=== PATIENT | male | born 1960 | race Hispanic/Latino ===

== ENCOUNTER → 2017-05-22 | Day surgery (SDC) | payer OTHER | LOC: RAD 12:52 | PROVIDERS: ATTEND Family Medicine | DX: R06.09 Other forms of dyspnea (principal) | CPT/HCPCS: 93017 ==

== ENCOUNTER 2017-07-22 07:57 | Outpatient (CLI) | payer OTHER ==
--- NOTE | 2017-07-22 10:34 | ULT ---
SONOGRAM ABDOMEN COMPLETE: History: Abnormal liver function tests. FINDINGS: Gallbladder has a normal appearance without evidence of stones. Common duct is 0.3 cm. Liver is heter ogeneous and hyperechoic. No focal mass. No free fluid. Spleen is 11.7 cm. A 1.8 cm cyst arises from the cortex of the left kidney. The right kidney and visu alized portions of the abdominal aorta, IVC, and pancreas are unremarkable. IMPRESSION: 1. Hepatosteatosis. No evidence of gallstones or biliary obstruction. 2. Left renal cyst. POS: [facility]
== END 2017-07-22 07:58 | disposition home or self-care (01) ==
LOC: SCSULT 07:57
PROVIDERS: ATTEND Family Medicine
DX: N28.1 Cyst of kidney, acquired (principal); K76.0 Fatty (change of) liver, not elsewhere classified
CPT/HCPCS: 76700

== ENCOUNTER 2017-11-03 12:01 | Emergency (ER) | payer OTHER | END 2017-11-03 12:37 | disposition home or self-care (01) | LOC: SCSER 12:01 | DX: T80.818A Extravasation of other vesicant agent, initial encounter (principal); E78.5 Hyperlipidemia, unspecified; I10 Essential (primary) hypertension | CPT/HCPCS: 99283 ==

== ENCOUNTER 2017-11-11 09:40 | Outpatient (CLI) | payer OTHER ==
[~2017-11-11 09:40] MED LIST: Iopamidol 370 76% 100 ML VIAL ONE
--- NOTE | 2017-11-11 11:38 | CT ---
CT ABDOMEN AND PELVIS WITH AND WITHOUT CONTRAST: HISTORY: Hematuria. Elevated PSA. COMPARISON: None. TECHNIQUE: Multiple contiguous axial images were obtained in a CT of the abdomen and pelvis with and without IV contrast. Post contrast images were obtained in the nephrographic aneurysm expiratory phases. Coron al reformats were performed. FINDINGS: No calcifications are seen in either kidney. There is a small hypodensity in the right kidney, measu ring 1.2 cm in size, which likely represents a cyst. No solid renal lesions are identified. Both ur eters are unremarkable without filling defects. The urinary bladder is unremarkable. The liver, gallbladder, adrenal glands, and pancreas are unremarkable. There are calcifications in t he spleen from prior granulomatous disease. There are scattered diverticula in the colon. The patient has a 2.6 cm left inguinal hernia, contain ing colon. The small bowel and appendix are unremarkable. No free air, free fluid, or stranding janneth nges are seen in the abdomen or pelvis. No abdominal or pelvic lymphadenopathy is seen. Degenerativ e changes are seen in the spine. Calcified granuloma are seen in the left hilar region, in the lungs . IMPRESSION: 1. No urinary collecting system abnormality. 2. Left renal cyst. 3. Left inguinal hernia containing colon. 4. Diverticulosis. POS: [facility]
== END 2017-11-11 09:41 | disposition home or self-care (01) ==
LOC: SCSCT 09:40
PROVIDERS: ATTEND Urology
DX: R31.29 Other microscopic hematuria (principal); R97.20 Elevated prostate specific antigen [PSA]; N28.1 Cyst of kidney, acquired; K40.90 Unilateral inguinal hernia, without obstruction or gangrene, not specified as recurrent; K57.30 Diverticulosis of large intestine without perforation or abscess without bleeding
CPT/HCPCS: 74178

== ENCOUNTER 2017-12-01 09:35 | Outpatient (CLI) | payer OTHER ==
[2017-12-01] MEDS ORDERED: Gadobenate Dimeglumine 529 MG/1 ML (20ML VIAL) ONE (12:30)
--- NOTE | 2017-12-01 16:15 | MRI ---
MRI OF THE PELVIS WITH AND WITHOUT CONTRAST: INDICATION: History of prostate cancer status post prostate biopsy 1.5 months ago. CONTRAST: The patient received 17 cc of MultiHance for the exam. TECHNIQUE: Multiplanar, multisequence MR images were obtained of the pelvis with and without IV contrast utilizi prostate cancer specific protocol. The images were interpreted on a separate 3D SPENCER-CAD work sta tion for a whole multiparametric evaluation. FINDINGS: The prostate measures 3.9 x 3.2 x 3.6 cm giving an estimated total prostatic volume of 26.0 CC. Ther e are some striated low T2 signal intensity foci within the peripheral zone of the prostate gland larisa picious for changes of prostatitis. There is marked heterogenous signal seen within the central zone . No suspicious area of restricted diffusion is seen within the peripheral zone. No definite abnorm al lesion is seen on the T2 weighted images within the central zone. No definite abnormal dynamic co ntrast enhancement was evident. No lymphadenopathy is noted. No definite bone marrow signal abnorma lity is evident. There is a large left inguinal hernia containing fat and portions of the sigmoid colon. There is sca ttered diverticula involving the colon. IMPRESSION: PIRADS category 2 - low (clinically significant cancer is unlikely to be present). Large left inguinal hernia containing fat and protions of the sigmoid colon. Colonic diverticulosis. POS: [facility]
== END 2017-12-01 09:36 | disposition home or self-care (01) ==
LOC: TBSIIMAG 09:35
PROVIDERS: ATTEND Urology
DX: C61 Malignant neoplasm of prostate (principal); K40.90 Unilateral inguinal hernia, without obstruction or gangrene, not specified as recurrent; K57.30 Diverticulosis of large intestine without perforation or abscess without bleeding
CPT/HCPCS: 72197; A9579

== ENCOUNTER 2017-12-11 08:34 | Emergency (ER) | payer OTHER ==
[2017-12-11 09:13] LABS: #Basophils 0.1 thou/uL (0.0-0.2); #Eosinphils 0.2 thou/uL (0.0-0.7); #Lymphocytes 2.2 thou/uL (1.20-3.40); #Monocytes 0.5 thou/uL (0.11-0.59); #Neutrophils 5.2 thou/uL (1.40-6.50); %Basophils 0.9 % (0.0-1.0); %Eosinophils 2.7 % (0.0-10.0); %Lymphocytes 26.8 % (21.0-51.0); %Monocytes 5.7 % (0.0-10.0); %Neutrophils 63.9 % (42.0-75.0); Mean Corpuscular HGB CONC 32.5 g/dL (32.0-36.0); Mean Corpuscular Hemoglobin 29.3 pg (27.0-31.0); Mean Corpuscular Volume 90.3 fL (78.0-98.0); Mean Platelet Volume 9.6 fL (7.4-10.4); Platelet Count 190 thou/uL (130-400); Red Blood Cell (RBC) Count 5.79 mill/uL (4.70-6.10); White Blood Cell (WBC) Count 8.2 thou/uL (4.8-10.8)
[2017-12-11 09:32] LABS: Troponin I Less than 0.010 ng/mL (< 0.028)
[2017-12-11 09:35] LABS: ALT (SGPT) 106 U/L (8-55); AST (SGOT) 80 U/L (5-34); Alkaline Phosphatase 152 U/L (40-150); Anion Gap 12 mmol/L (10-20); BUN (Urea Nitrogen) 16 mg/dL (8.4-25.7); Bilirubin, Total 0.5 mg/dL (0.2-1.2); Calc. Creatinine Clearance 0 mL/min (70-130); Calcium 10.3 mg/dL (7.8-10.44); Carbon Dioxide 28 mmol/L (22-29); Chloride 105 mmol/L (98-107); Estimated GFR-MDRD 64; Globulin 3.7 g/dL (2.4-3.5); Glucose 102 mg/dL (70-105); Potassium 4.7 mmol/L (3.5-5.1); Protein, Total 8.7 g/dL (6.0-8.3); Sodium 140 mmol/L (136-145)
--- NOTE | 2017-12-11 09:38 | RAD ---
PA AND LATERAL VIEWS OF CHEST: Date: 12/11/17 HISTORY: Syncope. FINDINGS: Comparison made with exam of previous day. The heart size is normal. The lungs are well expanded without focal areas of consolidation, pneumotho races, or pleural effusions. No acute osseous abnormalities are seen. IMPRESSION: No acute process. POS: [facility]
== END 2017-12-11 11:16 | disposition home or self-care (01) ==
LOC: ERS 08:34
DX: R55 Syncope and collapse (principal); E78.5 Hyperlipidemia, unspecified; I10 Essential (primary) hypertension
CPT/HCPCS: 71046; 80053; 83880; 84484; 85025; 85379; 93005

== ENCOUNTER → 2018-01-08 | Day surgery (SDC) | payer OTHER ==
[2018-01-07 09:37] VITALS: BMI 203.4
[~2018-01-08] MED LIST changes: +Bupivacaine 0.25% HCL 30 ML VIAL ONE; +Bupivacaine/Epinephrine 0.25% 30 ML VIAL ONE; +CEFAZOLIN 2 GM/50 ML BAG ONE; +Famotidine/PF 20 mg/2ml Vial ONE; +Fentanyl 100 MCG/2 ML VIAL ONE; -Iopamidol 370 76% 100 ML VIAL ONE; +Ketorolac Tromethamine 30 MG/ML VIAL ONE; +Midazolam HCl 2 mg/2 ml Vial ONE; +Promethazine HCl 25 MG/ML VIAL ONE
[2018-01-08 06:23] LABS: #Basophils 0.1 thou/uL (0.0-0.2); #Eosinphils 0.2 thou/uL (0.0-0.7); #Lymphocytes 2.2 thou/uL (1.20-3.40); #Monocytes 0.6 thou/uL (0.11-0.59); %Basophils 1.5 % (0.0-1.0); %Lymphocytes 26.9 % (21.0-51.0); %Monocytes 6.8 % (0.0-10.0); %Neutrophils 61.8 % (42.0-75.0); Hemoglobin 16.1 g/dL (14.0-18.0); Mean Corpuscular HGB CONC 32.1 g/dL (32.0-36.0); Mean Corpuscular Hemoglobin 29.6 pg (27.0-31.0); Mean Corpuscular Volume 92.3 fL (78.0-98.0); Mean Platelet Volume 9.5 fL (7.4-10.4); Platelet Count 192 thou/uL (130-400); RBC Distribution Width 11.8 % (11.5-14.5); Red Blood Cell (RBC) Count 5.42 mill/uL (4.70-6.10)
[2018-01-08 06:33] LABS: Anion Gap 11 mmol/L (10-20); BUN (Urea Nitrogen) 10 mg/dL (8.4-25.7); Calc. Creatinine Clearance 87 mL/min (70-130); Calcium 9.6 mg/dL (7.8-10.44); Carbon Dioxide 26 mmol/L (22-29); Chloride 107 mmol/L (98-107); Estimated GFR-MDRD 71; Glucose 101 mg/dL (70-105); Potassium 4.2 mmol/L (3.5-5.1); Sodium 140 mmol/L (136-145)
--- NOTE | 2018-01-08 15:35 | EKG ---
Test Reason : PREOP Blood Pressure : / mmHG Vent. Rate : 057 BPM Atrial Rate : 057 BPM P-R Int : 180 ms QRS Dur : 096 ms QT Int : 414 ms P-R-T Axes : 053 054 037 degrees QTc Int : 402 ms Sinus bradycardia Otherwise normal ECG Confirmed by ANTHONY HUFFMAN ([id number]) on 01/08/2018 3:32:59 PM Referred By: MELISSA Confirmed By:ANTHONY HUFFMAN
--- NOTE | 2018-01-09 10:47 | OP ---
DATE OF PROCEDURE: 01/08/2018 PREOPERATIVE DIAGNOSES: Left inguinal hernia, prostate cancer. POSTOPERATIVE DIAGNOSES: Left inguinal hernia, prostate cancer with a large left cord lipoma and a l arge indirect inguinal hernia. OPERATION PERFORMED: Open anterior left inguinal hernia repair, excision of cord lipoma. SURGEON: Juan A Wahl M.D. ANESTHESIA: General with laryngeal mask airway. INDICATIONS: The patient is a 57-year-old male. He has a recent diagnosis of prostate canc er and prostate surgery is planned in the near future. The patient was recognized to have a large an d symptomatic left inguinal hernia. He is taken to the operating room at this time for repair of thi s. Per Urology request, a preperitoneal/posterior repair is avoided in order to leave the preperiton eal space intact for eventual prostate surgery. DESCRIPTION OF OPERATION: Informed consent was obtained. The patient was taken to the operating josafat m where general anesthesia obtained with the patient in supine position. Left inguinal area was trim med of hair, prepped with ChloraPrep and draped in sterile fashion. Local anesthetic was infiltrated using 0.25% Marcaine with epinephrine. Oblique left inguinal incision was created. Dissection was carried through skin and subcutaneous tissue. Fascia was opened parallel to its fibers so as to open the external ring. Careful dissection was carried out within the inguinal canal and the cord struct ures were isolated with a Nicole drain. The direct space was noted to be somewhat weakened, but wit hout evidence of hernia. There was an obvious fairly large indirect hernia within the cord. The cord was dissected. There was found to be a substantial cord lipoma. This was dissected free fr om cord structures and dissected back down to its base at the internal ring where it was excised usin g electrocautery. The hernia sac was then carefully dissected free from cord structures. It was dis sected back to its base at the internal ring. All hernia sac contents were reduced. This was clampe d at its base and excised. It was suture ligated with a 2-0 Vicryl suture and the neck of the cord w as allowed to reduce into the preperitoneal space. The muscular defect at the internal ring was diss ected. This was closed with 2 interrupted sutures of 2-0 Vicryl. The direct space, where it was wee kend, was repaired with 2 interrupted sutures of 2-0 Vicryl to plicate the transversalis fascia. A mesh patch was obtained, trimmed to appropriate size. It was placed within the floor of the inguin al canal. It was secured in place with several interrupted sutures of 2-0 Vicryl. One was placed at the pubic tubercle, one to the shelving edge of the inguinal ligament, and one to the anterior aspec t of the internal oblique fascia. The tails were then secured lateral to the cord structures with 2- 0 Vicryl suture. The internal ring was recreated using this mesh and the mesh was secured to the mus cular closure underneath. The fascia was then closed with a running suture of 3-0 Vicryl. The remainder of the wound was close d in layers with 3-0 and 4-0 Monocryl. Additional local anesthetic was infiltrated during closure. Dermabond was placed externally. There were no complications. The patient tolerated the procedure w ell and was taken to recovery in stable condition.
== END ==
LOC: SDC 05:57
PROVIDERS: ATTEND Specialist
PROC: 0YU60JZ Supplement Left Inguinal Region with Synthetic Substitute, Open Approach (ICD-10-PCS; principal; 2018-01-08)
DX: K40.90 Unilateral inguinal hernia, without obstruction or gangrene, not specified as recurrent (principal); D17.6 Benign lipomatous neoplasm of spermatic cord; C61 Malignant neoplasm of prostate; E78.5 Hyperlipidemia, unspecified; Z79.899 Other long term (current) drug therapy; Z98.890 Other specified postprocedural states; Z91.041 Radiographic dye allergy status
CPT/HCPCS: 36415; 80048; 85025; 93005; 93010; 96374; 96375; C1781; J0131; J1885; J2250; J2550; J3010; S0020; S0028

== ENCOUNTER 2018-02-12 12:53 | Outpatient (CLI) | payer OTHER ==
[~2018-02-12 12:53] MED LIST changes: -Bupivacaine 0.25% HCL 30 ML VIAL ONE; -Bupivacaine/Epinephrine 0.25% 30 ML VIAL ONE; -CEFAZOLIN 2 GM/50 ML BAG ONE; -Famotidine/PF 20 mg/2ml Vial ONE; -Fentanyl 100 MCG/2 ML VIAL ONE; +Iopamidol 370 76% 100 ML VIAL ONE; -Ketorolac Tromethamine 30 MG/ML VIAL ONE; -Midazolam HCl 2 mg/2 ml Vial ONE; -Promethazine HCl 25 MG/ML VIAL ONE
--- NOTE | 2018-02-12 15:43 | CT ---
CT ANGIOGRAM THORAX WITH IV CONTRAST AND 3D RECONSTRUCTIONS: DATE: 02/12/2018. COMPARISON: CT abdomen on 11/11/2017. FINDINGS: Thoracic aorta is normal in caliber without evidence of an aortic dissection. No filling defects are seen in the pulmonary arteries to suggest a pulmonary embolus. There is a stable pulmonary nodule in the anterior aspect of the right middle lobe which measures bridgett roximately 5 mm. The lungs are otherwise clear. Mediastinal structures have a normal appearance. L eft hilar calcifications are seen related to prior granulomatous disease. Calcified granulomata are seen in the liver and spleen. The liver does demonstrate diminished attenu ation which is likely attributable to fatty infiltration. Colonic diverticulosis is seen within the visualized colon. IMPRESSION: 1. No CT evidence of a pulmonary embolus. 2. Stable right middle lobe pulmonary nodule measuring 5 mm. 3. Fatty infiltration of the visualized liver. 4. Colonic diverticulosis. POS: [facility]
== END 2018-02-12 12:54 | disposition home or self-care (01) ==
LOC: CT 12:53
PROVIDERS: ATTEND Internal Medicine Critical Care Medicine
DX: I26.99 Other pulmonary embolism without acute cor pulmonale (principal); R91.1 Solitary pulmonary nodule; K76.0 Fatty (change of) liver, not elsewhere classified; K57.30 Diverticulosis of large intestine without perforation or abscess without bleeding
CPT/HCPCS: 71275

== ENCOUNTER 2018-03-16 06:21 | Outpatient (CLI) | payer OTHER ==
[2018-03-16 11:33] LABS: Bilirubin Negative (Negative); Blood, Urine Negative (Negative); Clarity CLEAR (Clear); Glucose, Urine (Dipstick) Negative (Negative); Leukocyte Negative (Negative); Nitrite Negative (Negative); Protein, Urine (Dipstick) Negative (Neg-Trace); Specific Gravity, Urine 1.007 (1.002-1.036); Urobilinogen 0.2 mg/dL (0.2-1.0); pH, Urine 5.5 (5.0-9.0)
[2018-03-16 11:36] LABS: Bacteria/HPF None Seen HPF (None Seen); Hyaline Casts/LPF 0-3 HYALINE CAST LPF (0-3 Hyaline); Pathc Cast-AUWi Flag 0.14 (0-2.49); RBC/HPF 0-3 HPF (0-3); Squamous Epithelial None Seen HPF (0-3); WBC/HPF None Seen HPF (0-3)
[2018-03-16 11:37] LABS: Hemoglobin 15.4 g/dL (14.0-18.0); Mean Corpuscular HGB CONC 31.9 g/dL (32.0-36.0); Mean Corpuscular Hemoglobin 28.8 pg (27.0-31.0); Mean Corpuscular Volume 90.3 fL (78.0-98.0); Mean Platelet Volume 9.9 fL (7.4-10.4); Platelet Count 167 thou/uL (130-400); RBC Distribution Width 12.2 % (11.5-14.5); Red Blood Cell (RBC) Count 5.36 mill/uL (4.70-6.10); White Blood Cell (WBC) Count 7.5 thou/uL (4.8-10.8)
[2018-03-16 11:43] LABS: INR-International Normal Ratio 1.1; PTT 34.6 SEC (22.9-36.1); Prothrombin Time 13.8 SEC (12.0-14.7)
[2018-03-16 11:57] LABS: ALT (SGPT) 94 U/L (8-55); AST (SGOT) 70 U/L (5-34); Albumin 4.4 g/dL (3.5-5.0); Alkaline Phosphatase 132 U/L (40-150); Anion Gap 12 mmol/L (10-20); BUN (Urea Nitrogen) 11 mg/dL (8.4-25.7); Bilirubin, Total 0.8 mg/dL (0.2-1.2); Calc. Creatinine Clearance 0 mL/min (70-130); Calcium 10.2 mg/dL (7.8-10.44); Carbon Dioxide 25 mmol/L (22-29); Chloride 105 mmol/L (98-107); Estimated GFR-MDRD 73; Globulin 3.5 g/dL (2.4-3.5); Glucose 89 mg/dL (70-105); Potassium 4.3 mmol/L (3.5-5.1); Protein, Total 7.9 g/dL (6.0-8.3); Sodium 138 mmol/L (136-145)
--- NOTE | 2018-03-16 17:17 | EKG ---
Test Reason : Blood Pressure : / mmHG Vent. Rate : 064 BPM Atrial Rate : 064 BPM P-R Int : 174 ms QRS Dur : 092 ms QT Int : 424 ms P-R-T Axes : 045 103 017 degrees QTc Int : 437 ms Sinus rhythm with Premature atrial complexes Rightward axis Possible Inferior infarct , age undetermined Abnormal ECG When compared with ECG of 08-JAN-2018 06:39, Premature atrial complexes are now Present Borderline criteria for Inferior infarct are now Present Nonspecific T wave abnormality now evident in Lateral leads Confirmed by DR. Jose DOWNING ([id number]) on 03/16/2018 5:17:32 PM Referred By: BO Confirmed By:DR. Jose DOWNING
== END 2018-03-16 06:22 | disposition home or self-care (01) ==
LOC: LABBT 06:21
PROVIDERS: ATTEND Urology
DX: Z01.818 Encounter for other preprocedural examination (principal); C61 Malignant neoplasm of prostate
CPT/HCPCS: 80053; 81001; 85027; 85610; 85730; 87086; 93005; 93010

== ENCOUNTER 2018-03-16 09:00 | Inpatient (IN) | payer OTHER ==
[2018-03-16 10:16] VITALS: BMI 31.5
[2018-03-30] MEDS ORDERED: Bupivacaine HCl 0.25%/Epi 0.0005/PF 10 ML VIAL FS ONE (06:41)
[2018-03-30] MEDS ORDERED: cefOXitin Sodium/Dextrose,Iso 1 GM in Premix Bag 1 BAG IVPB SCH (06:45)
[2018-03-30] MEDS ORDERED: Levofloxacin 500 mg/D5W 100 ml Premix Bag ONE (06:50)
[2018-03-30] MEDS ORDERED: Fentanyl 250 MCG/5 ML VIAL ONE (06:53)
[2018-03-30] MEDS ORDERED: HYDROmorphone 2 MG/ML VIAL ONE (06:54)
[2018-03-30] MEDS ORDERED: Fentanyl 100 MCG/2 ML VIAL ONE ×2 (07:18→15:53)
[2018-03-30] MEDS ORDERED: Midazolam HCl 2 mg/2 ml Vial ONE (07:18)
[2018-03-30] MEDS ORDERED: Lidocaine 1% (PF) 30 ML VIAL ONE (07:22)
[2018-03-30] MEDS ORDERED: Dexamethasone 4 mg/ml Vial ONE (07:23)
[2018-03-30] MEDS ORDERED: KETAMINE 100 MG/ML (5ML VIAL) ONE (07:37)
[2018-03-30] MEDS ORDERED: Albumin 5% 500 ML ONE (07:37)
[2018-03-30] MEDS ORDERED: ceFOXitin 1 GM VIAL ONE ×3 (09:16→11:57)
[2018-03-30] MEDS ORDERED: Vecuronium 10 MG VIAL ONE ×2 (11:57→14:53)
[2018-03-30] MEDS ORDERED: B & O ONE (12:59)
[2018-03-30] MEDS ORDERED: Bupivacaine HCl 0.5%/Epinephrine 1:200,000/PF 30 ml Vial ONE (14:42)
[2018-03-30] MEDS ORDERED: Glycopyrrolate 0.2 MG/ML 5 ML SYRINGE ONE (14:53)
[2018-03-30] MEDS ORDERED: PHENYLEPHRINE-NS 100 MCG/ML 10 ML SYRINGE ONE (14:53)
[2018-03-30] MEDS ORDERED: Rocuronium Bromide 10 MG/ML (10ML VIAL) ONE (14:53)
[2018-03-30] MEDS ORDERED: ePHEDrine/0.9% NaCl/PF SYRINGE 50 mg/10 ml ONE (14:53)
[2018-03-30] MEDS ORDERED: Ondansetron PF 4 MG/2 ML Vial ONE (14:53)
[2018-03-30] MEDS ORDERED: Lidocaine 1% PF 5 ML VIAL ONE (14:53)
[2018-03-30] MEDS ORDERED: PROPOFOL 200 MG/20 ML VIAL ONE (14:53)
[2018-03-30] MEDS ORDERED: diphenhydrAMINE 50 MG/ML VIAL IVP PRN (15:26)
[2018-03-30] MEDS ORDERED: Morphine 4 MG/ML VIAL SLOW IVP PRN ×2 (15:26)
[2018-03-30] MEDS ORDERED: Mag-Al 1200 mg/1200 mg/30 ML UDCUP PO PRN (15:26)
[2018-03-30] MEDS ORDERED: hydrALAZINE 20 MG/ML VIAL SLOW IVP PRN ×2 (15:26)
[2018-03-30] MEDS ORDERED: Zolpidem Tartrate 5 MG TAB PO PRN (15:26)
[2018-03-30] MEDS ORDERED: HYDROcodone/Acetaminophen 7.5/325 mg Tablet PO PRN (15:26)
[2018-03-30] MEDS ORDERED: cefTRIAXone\\ROCEPHIN 1 GM in Sodium Chloride 0.9% 100 ML IVPB SCH (15:30)
[2018-03-30] MEDS ORDERED: Promethazine HCl 25 MG/ML VIAL SLOW IVP PRN (15:40)
[2018-03-30] MEDS ORDERED: Promethazine HCl 25 MG/ML VIAL IM PRN (15:40)
[2018-03-30] MEDS ORDERED: Ondansetron HCl/PF 4 MG/2 ML Vial IVP PRN (15:40)
[2018-03-30 16:52] LABS: #Lymphocytes 0.8 thou/uL (1.20-3.40); #Monocytes 0.4 thou/uL (0.11-0.59); #Neutrophils 12.1 thou/uL (1.40-6.50); %Eosinophils 0.1 % (0.0-10.0); %Lymphocytes 5.8 % (21.0-51.0); %Monocytes 3.1 % (0.0-10.0); %Neutrophils 90.9 % (42.0-75.0); Mean Corpuscular HGB CONC 32.2 g/dL (32.0-36.0); Mean Corpuscular Hemoglobin 29.8 pg (27.0-31.0); Mean Corpuscular Volume 92.6 fL (78.0-98.0); Mean Platelet Volume 9.9 fL (7.4-10.4); Platelet Count 179 thou/uL (130-400); White Blood Cell (WBC) Count 13.3 thou/uL (4.8-10.8)
[2018-03-30 16:59] LABS: Anion Gap 17 mmol/L (10-20); BUN (Urea Nitrogen) 12 mg/dL (8.4-25.7); Calc. Creatinine Clearance 83 mL/min (70-130); Calcium 9.1 mg/dL (7.8-10.44); Carbon Dioxide 18 mmol/L (22-29); Chloride 106 mmol/L (98-107); Estimated GFR-MDRD 67; Glucose 158 mg/dL (70-105); Potassium 4.4 mmol/L (3.5-5.1); Sodium 137 mmol/L (136-145)
[2018-03-30] MEDS: Docusate 100 MG CAP PO SCH (21:03)
[2018-03-30] MEDS: Famotidine/PF 20 mg/2ml Vial SLOW IVP SCH (21:03)
[2018-03-30] MEDS: Atorvastatin Calcium 10 MG TAB PO SCH (21:03)
[2018-03-30] MEDS: Sodium Chloride 0.9% 1,000 ML IV SCH (21:10)
[2018-03-31] MEDS: Sodium Chloride 0.9% 1,000 ML IV SCH (00:36)
[2018-03-31 06:38] LABS: #Lymphocytes 1.4 thou/uL (1.20-3.40); #Monocytes 0.9 thou/uL (0.11-0.59); #Neutrophils 11.1 thou/uL (1.40-6.50); %Basophils 0.1 % (0.0-1.0); %Eosinophils 0.1 % (0.0-10.0); %Lymphocytes 10.5 % (21.0-51.0); %Monocytes 6.5 % (0.0-10.0); %Neutrophils 82.8 % (42.0-75.0); Hemoglobin 13.9 g/dL (14.0-18.0); Mean Corpuscular Hemoglobin 29.6 pg (27.0-31.0); Mean Corpuscular Volume 92.6 fL (78.0-98.0); Mean Platelet Volume 10.1 fL (7.4-10.4); Platelet Count 174 thou/uL (130-400); RBC Distribution Width 12.1 % (11.5-14.5); Red Blood Cell (RBC) Count 4.69 mill/uL (4.70-6.10); White Blood Cell (WBC) Count 13.4 thou/uL (4.8-10.8)
[2018-03-31 06:55] LABS: Anion Gap 13 mmol/L (10-20); BUN (Urea Nitrogen) 12 mg/dL (8.4-25.7); Calc. Creatinine Clearance 101 mL/min (70-130); Carbon Dioxide 22 mmol/L (22-29); Chloride 109 mmol/L (98-107); Estimated GFR-MDRD 84; Glucose 98 mg/dL (70-105); Potassium 4.2 mmol/L (3.5-5.1); Sodium 140 mmol/L (136-145)
[2018-03-31] MEDS ORDERED: cefTRIAXone\\ROCEPHIN 1 GM in Sodium Chloride 0.9% 100 ML IVPB SCH ×2 (08:00→09:00)
[2018-03-31] MEDS: Oxybutynin ER 5 MG TAB PO SCH (08:44)
[2018-03-31] MEDS: Docusate 100 MG CAP PO SCH ×2 (08:44→21:07)
[2018-03-31] MEDS: Famotidine/PF 20 mg/2ml Vial SLOW IVP SCH ×2 (08:44→21:07)
[2018-03-31] MEDS: HYDROcodone/Acetaminophen 7.5/325 mg Tablet PO PRN ×2 (09:17→17:36)
--- NOTE | 2018-03-31 10:21 | OP ---
DATE OF PROCEDURE: 03/30/2018 PREOPERATIVE DIAGNOSIS: A 57-year-old male with clinical T1c prostate cancer, [place] score 3+4, 2/12 cores positive. POSTOPERATIVE DIAGNOSIS: A 57-year-old male with clinical T1c prostate cancer, [place] score 3+4, 2/12 cores positive. PROCEDURE PERFORMED: Robotic-assisted laparoscopic radical prostatectomy, nerve sparing TRANSIT SPECIALIST: Dr. Pal Solano ANESTHESIA: General. COMPLICATIONS: None apparent. DISPOSITION: To recovery room in stable condition. SPECIMENS: Seminal vesicle, portions of the vas bilaterally, prostate, periprostatic fat. DRAINS: 18-Kazakh Renner with 15 mL of sterile water insufflated., RAINE x 1 IV FLUIDS: Approximately 1300 mL of crystalloid and 300 of albumin. ESTIMATED BLOOD LOSS: Approximately 150 mL. INDICATIONS FOR PROCEDURE AND HISTORY: Mr. Lopez is a 57-year-old male who is referred to [facility] for elevated PSA, subsequently found to have Julio Cesar score 3+4, 2/12 cores positive. The patient underwent microscopic hematuria workup negative, metastatic workup negative. Due to his lymph node probability of 0% based on nomogram, lymph node dissection was not performed today with radical prostatectomy. MRI negative. We discussed risks and complications of procedure including, but not limited to, bleeding, pain, infection, injury to adjacent organs, urosepsis, PE, DVT, perioperative morbidity, mortality, injury to adjacent organs such as bony prominences, musculature, blood vessels, possible secondary procedure, injury to adjacent organs such as ureters, rectum, requiring diverting colostomy was reviewed. Moreover, we discussed possibility of impotence, permanent; incontinence that may require secondary procedure. He desired trial of nerve-sparing if possible and was fully advised regarding possible increased risk of margin-positive disease if evidence of capsular invasion. All questions were answered to his satisfaction and desired to proceed. DESCRIPTION OF PROCEDURE: After an informed consent was signed, the patient was taken to the operating room. He underwent a TAP block in preop unit. Broad-spectrum antibiotics were provided. Bilateral FANNY hose SCDs were provided. The patient was placed on a padded anti-skid pad placed in a modified lithotomy position in Trendelenburg at approximately 45-degree angle. All pressure points were padded and protected at all times, and the patient was secured. At this time, after the patient was formally prepped and draped, a pneumoperitoneum was achieved with Veress needle entry. High flow low pressure was noted with adequate insufflation to 15 mmHg. With adequate pneumoperitoneum, we made a small semi-circular incision infraumbilical and placed our camera 12mm port trocar. Visual inspection of the intra-abdominal contents demonstrated no evidence of bowel injury or vascular injury of concern. We did inspect an intra-abdominal cavity demonstrating some adhesions in the left lower quadrant. He did have some adhesions in the right lower quadrant. We then subsequently passed all our robotic trocars. We placed a 15-mm trocar in #1 arm, #2 and #3 were 8 mm ports in the left lower quadrant. We placed an 11-mm occupational therapist assistants port on the right side. A 5-mm occupational therapist assistants port was also placed in the right upper quadrant. All ports were placed under direct visualization. Dilating trocars were utilized. The robot was then subsequently docked and we proceeded to perform a robotic prostatectomy. We approached his prostate in a posterior fashion. Prior to approaching his rectovesical pouch, I did perform lysis of adhesions in the left lower quadrant retracting the bowel contents out of the way. There were minimal adhesions in the right lower quadrant bowel contents does not require lysis of adhesions. Using a third arm, bowel contents were retracted cephalad. The rectovesical pouch was inspected. We made a small semi-circular incision using monopolar scissors. The bilateral vas deferens was sharply dissected and delivered and divided. The SVs were subsequently sharply dissecting them free from adherent structures. Minimal monopolar cautery was utilized at the seminal vesicle tips as we performed the nerve-sparing. With the seminal vesicles dissected to the level of the prostate, we did develop Denonvilliers fascia posteriorly. Then, we put a Surgicel in this region and proceeded to perform our bladder mobilization. The bilateral medial umbilical ligaments were identified. The right medial ligament was somewhat subtle/ obliterated due to higher inguinal hernia repair with mesh. The right medial umbilical ligament was developed and the prevesical space developed. There was significant amount of adhesions on this side from his previous inguinal hernia repair years ago, as there was a large mesh. The mesh was sharply dissected off the prevesical space. We did have to mobilize the left medial umbilical ligament completely. I still developing a pubic arch so that we may meet from known to unknown as the right demonstrated some adhesions due to the mesh. We were able to successfully dropped the bladder with no evidence of vesicle injury. The mesh was completely dissected off the attachments of the bladder in the preperitoneal anterior space of Retzius. With the bladder completely dropped, the pubic arch was developed. At this time, the bladder was then retracted cephalad with the third arm and we then proceeded to mobilize the endopelvic fascia. Using sharp dissection using bipolar and monopolar energy, we developed the endopelvic fascia and releasing the endopelvic fascia in the levators. The right neurovascular bundle was easily identified and this was spared and retracted laterally. The left endopelvic fascia was dissected and it already appeared that we were in the right fascia plane for nerve sparing. The reflection of the endopelvic fascia and prostatic fascia were dissected, developing the left lateral aspect of the prostate nicely. Although, we did not obviously see the left neurovascular bundle nerve, we were in the right fascial plane to spare the nerve. Further dissection would be entering the very prominent prostatic venous channels. Therefore, we did not pursue further division of the fascia reflection on the left lateral pedicle. At this time, we developed the apex. There was significant amount of prepubertal fat, which was sharply dissected. The dorsal venous complex was then isolated after we sharply divided the puboprostatic ligament with both bipolar and monopolar energy. After we appropriately divided the puboprostatic ligament, using endoscopic vascular staplers, green load 45 mm, the dorsal venous complex was stapled and divided. Good hemostasis was noted. At this time, we began to develop our lateral pedicle as the right neurovascular bundle was dissected off the prostate. The lateral pedicles were divided using vessel sealer to the level of the mid-prostate. We developed the posterior aspect of the prostate and dissected the rectum off the apex of the prostate. As we came close to the apex of the prostate, we then switched to the anterior approach, dividing the dorsal vein complex with bipolar, then dividing with monopolar scissors. The urethra was isolated, divided with sharp scissors and a Renner catheter delivered. The posterior lip of the urethra was then divided. There was still attachment to the rectourethralis muscle, which we sharply dissected off the rectum. At the end of the procedure, we did not appreciate any rectal injury and this was checked with a finger exam, which demonstrated no evidence of rectal injury as well as filling the abdominal cavity with fluid and insufflating air per rectum , which did not demonstrate any injury of rectal compromise. At this time, a bladder neck was prepared. A Casper stitch using 2-0 Vicryl was placed approximating the rectourethralis in bladder neck. Using 2-0 Vicryl V-Loc, we performed the anastomosis in a continuous layer. At the end of the procedure, an 18-Kazakh 15 mL Renner catheter was insufflated and check for anastomotic leak, which we did not obviously appreciate. Floseal was then placed in the area of the anastomosis in the endopelvic fascia. There was some oozing from the superficial area of the pubic arch, which was cauterized with good hemostasis. A circular drain was then placed through our 8 mm port and secured to skin using 3-0 nylon. Our specimen was delivered through the EndoCatch, then subsequently delivered through our camera port. The specimen retrieval site infraumbilically was closed with 2-0 Vicryl in a [id number]. The 15 mm and 11 mm ports were closed with a Oscar-Prachi stitch using 2-0 Vicryl. Skin was closed with 4-0 Maxon in a subcuticular fashion. He tolerated the procedure well, and transported to the recovery room in stable condition. Job ID: [id number] [facility]
--- NOTE | 2018-03-31 10:22 | PRG ---
DATE OF SERVICE: 03/31/2018 SUBJECTIVE: The patient doing well, has minimal discomfort. Denies nausea or vomiting. He states that he is very hungry. OBJECTIVE: VITAL SIGNS: Stable. He is afebrile. Temperature 98, pulse 79, respirations 16, O2 sat 97% on room air, and blood pressure 108/69. I's and O's ; 1500 in and 2260 out. Urine output is clear. sanguinous fluid. per RAINE LUNGS: Clear. ABDOMEN: Soft. Incisions are clean, dry, and intact. There is no rigidity. No rebound. No significant distention. Bowel sounds are present. EXTREMITIES: No cyanosis, clubbing, or edema. : Renner catheter adequately secured, draining clear yellow urine. PERTINENT LABORATORY DATA: White count 13, hemoglobin 13.9, platelets 174. Renal function stable at 0.93. IMPRESSION AND PLAN: Mr. Lopez is a 57-year-old male with clinical T1c prostate cancer, Julio Cesar score 3+4, status post robotic-assisted laparoscopic radical prostatectomy, nerve-sparing postop day #1. The patient is doing well clinically. will Hep-Lock the IV, advance diet as tolerated. As the patient has yet passed gas, I informed the patient to be judicious regarding oral intake if there is nausea. I informed him to revert to clears or bland diet. He is aggressively to be out of bed, the patient is agreeable to this. He continues to perform dorsiflexion, plantar flexion, while in bed with bilateral FANNY farrah SCDs as DVT prophylaxis. If hemoglobin and hematocrit remains stable tomorrow, with improvement of the RAINE caliber, we will switch to DVT prophylaxis with Lovenox. Job ID: [id number] [facility]
[2018-03-31] MEDS: Atorvastatin Calcium 10 MG TAB PO SCH (21:07)
[2018-04-01 06:58] LABS: #Basophils 0.1 thou/uL (0.0-0.2); #Eosinphils 0.2 thou/uL (0.0-0.7); #Lymphocytes 2.1 thou/uL (1.20-3.40); #Monocytes 0.8 thou/uL (0.11-0.59); #Neutrophils 9.1 thou/uL (1.40-6.50); %Basophils 0.6 % (0.0-1.0); %Eosinophils 1.9 % (0.0-10.0); %Monocytes 6.2 % (0.0-10.0); %Neutrophils 74.2 % (42.0-75.0); Hemoglobin 14.2 g/dL (14.0-18.0); Mean Corpuscular HGB CONC 32.2 g/dL (32.0-36.0); Mean Corpuscular Hemoglobin 29.7 pg (27.0-31.0); Mean Corpuscular Volume 92.2 fL (78.0-98.0); Mean Platelet Volume 9.8 fL (7.4-10.4); Platelet Count 172 thou/uL (130-400); White Blood Cell (WBC) Count 12.2 thou/uL (4.8-10.8)
[2018-04-01 07:25] LABS: Anion Gap 13 mmol/L (10-20); BUN (Urea Nitrogen) 11 mg/dL (8.4-25.7); Calc. Creatinine Clearance 101 mL/min (70-130); Calcium 9.2 mg/dL (7.8-10.44); Carbon Dioxide 27 mmol/L (22-29); Chloride 102 mmol/L (98-107); Estimated GFR-MDRD 84; Glucose 85 mg/dL (70-105); Potassium 4.1 mmol/L (3.5-5.1); Sodium 138 mmol/L (136-145)
[2018-04-01] MEDS: Famotidine/PF 20 mg/2ml Vial SLOW IVP SCH ×2 (08:29→21:22)
[2018-04-01] MEDS: Oxybutynin ER 5 MG TAB PO SCH (08:29)
[2018-04-01] MEDS: Docusate 100 MG CAP PO SCH ×2 (08:29→21:22)
[2018-04-01] MEDS: Enoxaparin Sodium 40 MG/0.4 ML SYRINGE SC SCH (08:29)
[2018-04-01] MEDS: HYDROcodone/Acetaminophen 7.5/325 mg Tablet PO PRN ×2 (08:29→18:24)
--- NOTE | 2018-04-01 08:44 | PRG ---
DATE OF SERVICE: 04/01/2018 SUBJECTIVE: Denies nausea or vomiting, has not yet passed flatus. Tolerating clears. OBJECTIVE: VITAL SIGNS: Stable. T-max of 99, pulse 67, respiratory rate 18, O2 saturations 94%, blood pressure 135/80. I's and O's; 2120 in and 4100 out. RAINE 100 over 24 hours. Urine output 4 L. P.o. intake 0. GENERAL: The patient is in no acute distress. Comfortable. at bedside. LUNGS: Clear. ABDOMEN: Mildly distended from yesterday. Incisions are clean, dry, and intact. Serosanguineous fluid noted from RAINE. His bowel sounds are present, more active than yesterday. EXTREMITIES: No cyanosis, clubbing, or edema. PERTINENT LABORATORY DATA: Sodium 140, creatinine 0.9. White count 12, hemoglobin stable at 14.2, platelet 172. Pathology is pending. IMPRESSION AND PLAN: Mr. Lopez is a 57-year-old male with clinical T1c, [place] score 3+4, prostate cancer, status post robotic assisted laparoscopic radical prostatectomy, nerve-sparing postop day #2. The patient is clinically doing well, his H and H are stable, will start Lovenox. discontinue Rocephin. He is hep-locked, tolerating clears. His bowel sounds are improved from yesterday. However, as he is mildly distended, I will keep him on clears and encourage to be out of bed as previous. He has been doing great, ambulating aggressively. Instructed the patient regarding incentive spirometry. will continue to observe in-house. Job ID: [id number] [facility]
[2018-04-01] MEDS: Atorvastatin Calcium 10 MG TAB PO SCH (21:21)
[2018-04-02 03:54] LABS: #Eosinphils 0.3 thou/uL (0.0-0.7); #Lymphocytes 2.1 thou/uL (1.20-3.40); #Monocytes 0.9 thou/uL (0.11-0.59); #Neutrophils 8.9 thou/uL (1.40-6.50); %Basophils 0.1 % (0.0-1.0); %Eosinophils 2.1 % (0.0-10.0); %Lymphocytes 17.5 % (21.0-51.0); %Monocytes 7.3 % (0.0-10.0); Hemoglobin 14.5 g/dL (14.0-18.0); Mean Corpuscular HGB CONC 32.8 g/dL (32.0-36.0); Mean Corpuscular Hemoglobin 30.5 pg (27.0-31.0); Mean Corpuscular Volume 92.8 fL (78.0-98.0); Mean Platelet Volume 9.6 fL (7.4-10.4); Platelet Count 171 thou/uL (130-400); RBC Distribution Width 11.9 % (11.5-14.5); Red Blood Cell (RBC) Count 4.75 mill/uL (4.70-6.10); White Blood Cell (WBC) Count 12.1 thou/uL (4.8-10.8)
[2018-04-02 04:15] LABS: Anion Gap 12 mmol/L (10-20); BUN (Urea Nitrogen) 10 mg/dL (8.4-25.7); Calc. Creatinine Clearance 99 mL/min (70-130); Calcium 9.2 mg/dL (7.8-10.44); Carbon Dioxide 26 mmol/L (22-29); Chloride 101 mmol/L (98-107); Estimated GFR-MDRD 82; Glucose 85 mg/dL (70-105); Potassium 3.9 mmol/L (3.5-5.1); Sodium 135 mmol/L (136-145)
[2018-04-02] MEDS: Famotidine/PF 20 mg/2ml Vial SLOW IVP SCH ×2 (08:21→20:44)
[2018-04-02] MEDS: Docusate 100 MG CAP PO SCH ×2 (08:21→20:44)
[2018-04-02] MEDS: Enoxaparin Sodium 40 MG/0.4 ML SYRINGE SC SCH (08:22)
[2018-04-02] MEDS ORDERED: Bisacodyl 5 MG TAB PO ONE (09:00)
--- NOTE | 2018-04-02 09:23 | PRG ---
DATE OF SERVICE: 04/02/2018 HISTORY: The patient doing well, he has not yet passed flatus; however, denies nausea or vomiting, tolerating clears. Appetite is okay. He has been ambulating aggressively couple of times a day. He is hep-locked. at bedside. OBJECTIVE: VITAL SIGNS: Stable at temperature 98, pulse 72, respirations 18, O2 saturation 94%, blood pressure 128/84. I's and O's; 2470 of urine out, RAINE 170, more serous now. LUNGS: Clear. ABDOMEN: Soft, mildly distended. He does have active bowel sounds. There is no rigidity. No rebound. EXTREMITIES: No cyanosis, clubbing, or edema. Urine output is clear. PERTINENT LABORATORY DATA: Pathology is pending. Labs are stable. White count 12, hemoglobin 14.5, and platelet 171. Renal function stable at 0.95. Again, pathology is pending. IMPRESSION AND PLAN: Mr. Lopez is a 57-year-old male with Julio Cesar score 3+4, clinical T1c prostate cancer, status post robotic assisted laparoscopic radical prostatectomy, nerve-sparing postop day #3. The patient clinically is stable. Labs, H and H remain unchanged. He is to be aggressively out of bed. Clear liquids. I did provide him a dose of Dulcolax, which I inserted myself at bedside. He is encouraged to be out of bed and we will continue to monitor him for return of bowel function. Job ID: [id number] [facility]
[2018-04-02] MEDS: HYDROcodone/Acetaminophen 7.5/325 mg Tablet PO PRN (11:14)
[2018-04-02] MEDS: Atorvastatin Calcium 10 MG TAB PO SCH (20:44)
[2018-04-03 04:46] LABS: #Eosinphils 0.4 thou/uL (0.0-0.7); #Lymphocytes 1.7 thou/uL (1.20-3.40); #Monocytes 0.7 thou/uL (0.11-0.59); #Neutrophils 10.4 thou/uL (1.40-6.50); %Basophils 0.2 % (0.0-1.0); %Eosinophils 2.7 % (0.0-10.0); %Lymphocytes 12.5 % (21.0-51.0); %Monocytes 5.6 % (0.0-10.0); Hemoglobin 14.7 g/dL (14.0-18.0); Mean Corpuscular HGB CONC 31.6 g/dL (32.0-36.0); Mean Corpuscular Hemoglobin 28.4 pg (27.0-31.0); Mean Corpuscular Volume 89.9 fL (78.0-98.0); Mean Platelet Volume 9.6 fL (7.4-10.4); Platelet Count 221 thou/uL (130-400); RBC Distribution Width 11.7 % (11.5-14.5); Red Blood Cell (RBC) Count 5.18 mill/uL (4.70-6.10); White Blood Cell (WBC) Count 13.2 thou/uL (4.8-10.8)
[2018-04-03 05:11] LABS: Anion Gap 15 mmol/L (10-20); BUN (Urea Nitrogen) 11 mg/dL (8.4-25.7); Calc. Creatinine Clearance 108 mL/min (70-130); Calcium 9.4 mg/dL (7.8-10.44); Carbon Dioxide 22 mmol/L (22-29); Chloride 100 mmol/L (98-107); Estimated GFR-MDRD Greater than 90; Glucose 89 mg/dL (70-105); Potassium 3.9 mmol/L (3.5-5.1); Sodium 133 mmol/L (136-145)
[2018-04-03] MEDS: Docusate 100 MG CAP PO SCH ×2 (08:49→21:53)
[2018-04-03] MEDS: Famotidine/PF 20 mg/2ml Vial SLOW IVP SCH ×2 (08:49→21:54)
[2018-04-03] MEDS: Enoxaparin Sodium 40 MG/0.4 ML SYRINGE SC SCH (08:51)
--- NOTE | 2018-04-03 13:10 | PRG ---
DATE OF SERVICE: 04/03/2018 SUBJECTIVE: The patient had some salad last night, had mild nausea. However, has had some loose bowel movements. OBJECTIVE: VITAL SIGNS: 99.1, 80, 18, 96% on room air, and 122/81. I's and O' s 1870 in and out 1640. RAINE 140 mL of serosanguineous mostly serous. Urine output 1500 mL of clear yellow urine. GENERAL: The patient is in no acute distress. HEART: Regular rate. LUNGS: Clear. ABDOMEN: Soft, mildly distended. Bowel sounds are active. No rigidity. No rebound. Has some tenderness in the mid to right lower quadrant. His RAINE was removed. EXTREMITIES: No cyanosis, clubbing, or edema. PERTINENT LABS: White count 13, hemoglobin stable at 14.7, and platelet 221. Renal function stable at 0.87. RAINE creatinine is 0.79 consistent with no evidence of urine leak. Pathology is pending. IMPRESSION AND PLAN: Mr. Lopez is a 57-year-old male with history of clinical T1c Julio Cesar score 3+4 prostate cancer, status post robotic assisted laparoscopic radical prostatectomy, nerve-sparing postop day #4. His bowel sounds are active, he has passed small bowel movements, mostly loose. He has been on clears. I informed the patient to proceed with regular diet. If he has no significant nausea, able to tolerate regular food. I anticipate the patient will be discharged this afternoon. addendum: Lovenox this morning was held as he had a nosebleed currently resolved. He has been aggressively ambulating as previous. On afternoon rounds, patient subsequently has passed small bowel movement mostly liquid. Tolerated regular lunch; no significant nausea or emesis of concern. Patient desires to be observed overnight, as he is concerned regarding long travel home. It is reasonable to keep him overnight per his wishes. He is again advised to be out of bed, ambulate. We'll discharge in a.m. Job ID: [id number] [facility]
[2018-04-03] MEDS: Atorvastatin Calcium 10 MG TAB PO SCH (21:53)
[2018-04-04 08:13] LABS: #Basophils 0.1 thou/uL (0.0-0.2); #Eosinphils 0.4 thou/uL (0.0-0.7); #Lymphocytes 1.9 thou/uL (1.20-3.40); #Monocytes 0.8 thou/uL (0.11-0.59); #Neutrophils 8.4 thou/uL (1.40-6.50); %Basophils 0.4 % (0.0-1.0); %Eosinophils 3.6 % (0.0-10.0); %Lymphocytes 16.1 % (21.0-51.0); %Monocytes 6.5 % (0.0-10.0); %Neutrophils 73.3 % (42.0-75.0); Hemoglobin 14.7 g/dL (14.0-18.0); Mean Corpuscular Hemoglobin 28.9 pg (27.0-31.0); Mean Corpuscular Volume 90.1 fL (78.0-98.0); Platelet Count 224 thou/uL (130-400); RBC Distribution Width 11.6 % (11.5-14.5); White Blood Cell (WBC) Count 11.5 thou/uL (4.8-10.8)
[2018-04-04] MEDS: Docusate 100 MG CAP PO SCH (08:44)
[2018-04-04] MEDS: Famotidine/PF 20 mg/2ml Vial SLOW IVP SCH (08:44)
[2018-04-04] MEDS: Enoxaparin Sodium 40 MG/0.4 ML SYRINGE SC SCH (08:44)
[2018-04-04 11:57] VITALS: BP 138/75; TEMP 99.1
--- NOTE | 2018-04-04 13:15 | DIS ---
DATE OF ADMISSION: 03/30/2018 DATE OF DISCHARGE: 04/04/2018 BRIEF HOSPITAL COURSE: Mr. Lopez is a 57-year-old male with history of clinical T1c prostate cancer, Starks score 3+4, who presented 03/30 for a robotic assisted laparoscopic radical prostatectomy. He underwent right nerve-sparing radical prostatectomy uneventfully. There was minimal blood loss. Postoperatively, he did well. He had minimal narcotic requirement, ambulating aggressively. His renal function, H and H remained stable throughout. RAINE was removed yesterday, RAINE creatinine within normal limits with no evidence of urine leak. His final pathology demonstrated margin negative prostate cancer. Pathologic T2 NX, Starks score 3 +4. Margins are uninvolved by malignancy. He was monitored with clear liquids until he had adequate return of bowel function. I did provide him a dose of Dulcolax and subsequently, he had small bowel movements. Although, he was clinically stable to be discharged yesterday, due to hour in the late afternoon, and travel distance home, he desired to be observed overnight . He did well overnight, passing gas with no nausea, vomiting, and no significant narcotic requirement. He has done well. Tolerating regular diet CONDITION: Stable. DISPOSITION: Home. DISCHARGE MEDICATIONS: The patient is to continue his Avastatin at home. He is discharged with [place] 5/325 p.r.n., Colace p.r.n. Urologic followup appointment next , 04/09 at 8 a.m. I informed the patient if his urine output remains clear, anticipate Renner catheter removal and voiding trial next . discharged with indwelling Renner catheter to gravity. Leg bag instruction provided. Job ID: [id number] [facility]
== END 2018-04-04 12:24 | disposition home or self-care (01) | DRG 708 ==
LOC: SURG A 03-30 05:37
PROVIDERS: ADMIT Urology; ATTEND Urology
PROC: 0VT04ZZ Resection of Prostate, Percutaneous Endoscopic Approach (ICD-10-PCS; principal; 2018-03-30)
PROC: 8E0W4CZ Robotic Assisted Procedure of Trunk Region, Percutaneous Endoscopic Approach (ICD-10-PCS; 2018-03-30)
DX: C61 Malignant neoplasm of prostate (principal); E78.5 Hyperlipidemia, unspecified; K76.0 Fatty (change of) liver, not elsewhere classified; R39.11 Hesitancy of micturition; K40.90 Unilateral inguinal hernia, without obstruction or gangrene, not specified as recurrent; R31.29 Other microscopic hematuria; N40.1 Benign prostatic hyperplasia with lower urinary tract symptoms; N28.1 Cyst of kidney, acquired
CPT/HCPCS: 36415; 80048; 82570; 85025; 86850; 86900; 86901; 88305; 88309; 88341; 88342; J0131; J0670; J0694; J0696; J1100; J1170; J1650; J1956; J2001; J2250; J2270; J2405; J2704; J3010; J7050; P9045; S0028

== ENCOUNTER 2018-03-26 09:01 | Outpatient (CLI) | payer OTHER | END 2018-03-26 09:02 | disposition home or self-care (01) | LOC: LABBT 09:01 | PROVIDERS: ATTEND Urology | DX: Z01.812 Encounter for preprocedural laboratory examination (principal); C61 Malignant neoplasm of prostate | CPT/HCPCS: 86850; 86900; 86901 ==

== ENCOUNTER 2019-03-22 10:17 | Outpatient (CLI) | payer OTHER ==
--- NOTE | 2019-03-22 15:29 | NM ---
NUCLEAR MEDICINE WHOLE BODY BONE SCAN: HISTORY: Prostate cancer. COMPARISON: None. TECHNIQUE: The patient was administered 32.5 mCi of Technetium 99m MDP intravenously. After appropriate delay, whole body imaging was performed. FINDINGS: Expected distribution of the radiotracer. Uptake in the sinuses likely due to sinus disease. Uptake in bilateral sternoclavicular joints, shoulders, right 1st metatarsophalangeal joint space, an d right interphalangeal joint space likely due to degenerative change. Nonspecific uptake in the body of the sternum. Subtle uptake in the posterior left calvarium. IMPRESSION: 1. Nonspecific uptake in the body of the sternum. Consider further evaluation with chest CT to asse ss for possible sternal lesion. Correlation made with a CT angiogram from 02/12/2018 does not demonst rate a sternal lesion. 2. Possible focal uptake involving the posterior left calvarium. Further evaluation with brain MRI if clinically warranted. POS: GONZÁLEZ
== END 2019-03-22 10:18 | disposition home or self-care (01) ==
LOC: NM 10:17
PROVIDERS: ATTEND Radiology Radiation Oncology
DX: C61 Malignant neoplasm of prostate (principal); R97.20 Elevated prostate specific antigen [PSA]
CPT/HCPCS: 78306; A9503

== ENCOUNTER 2019-05-03 07:45 | Outpatient (CLI) | payer OTHER ==
--- NOTE | 2019-05-03 09:11 | CT ---
EXAM: CT of the chest without contrast HISTORY: Prostate cancer with possible sternal metastasis on bone scan COMPARISON: Bone scan 03/22/2019 TECHNIQUE: Multiple contiguous axial images were obtained in a CT the chest without contrast. Coronal and sagittal reformats were performed. FINDINGS: HEART: Normal in size without focal cardiac abnormality MEDIASTINUM: No hilar or mediastinal lymphadenopathy. There are calcified left hilar and mediastinal lymph nodes. Evaluation of the mediastinum is limited without IV contrast. LUNGS: No focal infiltrates, nodules, or masses. PLEURAL SPACE: No pneumothorax or pleural effusion. CHEST WALL SOFT TISSUES: Unremarkable OSSEOUS STRUCTURES: Unremarkable. No abnormality is seen in the sternum. VISUALIZED SUBDIAPHRAGMATIC STRUCTURES: Unremarkable IMPRESSION: No evidence of intrathoracic metastatic disease. No sternal abnormality.
== END 2019-05-03 07:46 | disposition home or self-care (01) ==
LOC: CT 07:45
PROVIDERS: ATTEND Radiology Radiation Oncology
DX: C61 Malignant neoplasm of prostate (principal); R97.21 Rising PSA following treatment for malignant neoplasm of prostate
CPT/HCPCS: 71250

== ENCOUNTER 2019-07-13 08:41 | Outpatient (CLI) | payer OTHER ==
--- NOTE | 2019-07-13 10:07 | MRI ---
Exam: Brain MRI with and without contrast HISTORY: Prostate cancer. Abnormal bone scan with Richeson localization involving the posterior left calvarium. COMPARISON: None Correlation: Whole body bone scan 03/22/2019 FINDINGS: Gradient echo sequence: No hemorrhage Calvarium: Appropriate T1 marrow signal intensity. There does not appear to be a MRI correlate with t he focus of increased radiotracer localization noted on recent bone scan. Midline brain parenchyma: No acute abnormality. Cerebrum:No parenchymal mass, mass effect or midline shift. Brain volume is age-appropriate. Cortical hollingsworth-white matter differentiation is preserved. No significant T2 or FLAIR white matter hyperintensities Ventricles: No evidence of hydrocephalus. Sinuses and mastoid air cells: Adequate aeration Diffusion: Central arterial flow is maintained. Absent restricted diffusion. Postcontrast images: No pathologic enhancement of the brain parenchyma. IMPRESSION: 1. No abnormal signal intensity of the visualized brain parenchyma. 2. No MR signal abnormality with regards to the left calvarium to correspond to the recent bone scan finding.
== END 2019-07-13 08:42 | disposition home or self-care (01) ==
LOC: SCSMRI 08:41
PROVIDERS: ATTEND Urology
DX: C61 Malignant neoplasm of prostate (principal)
CPT/HCPCS: 70553

== ENCOUNTER 2019-11-19 05:48 | Outpatient (CLI) | payer OTHER ==
[2019-11-19 14:02] LABS: INR-International Normal Ratio 0.9; PTT 35.8 sec (22.9-36.1); Prothrombin Time 12.6 sec (12.0-14.7)
[2019-11-19 14:32] LABS: Hemoglobin 16.7 g/dL (14.0-18.0); Mean Corpuscular HGB CONC 31.2 g/dL (32.0-36.0); Mean Platelet Volume 11.4 fL (7.4-10.4); Platelet Count 173 thou/uL (130-400); RBC Distribution Width 12.4 % (11.5-14.5); Red Blood Cell (RBC) Count 5.76 mill/uL (4.70-6.10); White Blood Cell (WBC) Count 8.9 thou/uL (4.8-10.8)
[2019-11-19 14:44] LABS: Bacteria/HPF None Seen HPF (None Seen); Bilirubin Negative (Negative); Blood, Urine Negative (Negative); Clarity Clear (Clear); Glucose, Urine (Dipstick) Normal (Negative); Ketone, Urine Negative (Negative); Leukocyte Negative Leu/uL (Negative); Nitrite Negative (Negative); Protein, Urine (Dipstick) Negative (Neg-Trace); RBC/HPF 0-3 HPF (0-3); Specific Gravity, Urine 1.023 (1.002-1.036); Squamous Epithelial None Seen HPF (0-3); Urobilinogen Normal mg/dL (Less than 2); WBC/HPF 0-3 HPF (0-3); pH, Urine 5.5 (5.0-9.0)
[2019-11-19 19:14] LABS: Anion Gap 17 mmol/L (10-20); BUN (Urea Nitrogen) 15 mg/dL (8.4-25.7); Calc. Creatinine Clearance 0 mL/min (70-130); Calcium 9.7 mg/dL (7.8-10.44); Carbon Dioxide 23 mmol/L (22-29); Chloride 103 mmol/L (98-107); Estimated GFR-MDRD 68; Glucose 88 mg/dL (70-105); Potassium 4.7 mmol/L (3.5-5.1); Sodium 138 mmol/L (136-145)
[2019-11-20 14:07] LABS: SARS-CoV-2 by NAA DETECTED (NotDetected)
[2019-11-20 14:25] LABS: SARS-CoV-2 MS2 Positive; SARS-CoV-2 N Gene Positive; SARS-CoV-2 S Gene Positive; SARS-CoV-2 orf1ab Negative
== END 2019-11-19 05:49 | disposition home or self-care (01) ==
LOC: LABBT 05:48
PROVIDERS: ATTEND Urology
DX: U07.1 COVID-19 (principal); C61 Malignant neoplasm of prostate; R31.29 Other microscopic hematuria; R97.20 Elevated prostate specific antigen [PSA]; K40.90 Unilateral inguinal hernia, without obstruction or gangrene, not specified as recurrent; R74.8 Abnormal levels of other serum enzymes; N99.89 Other postprocedural complications and disorders of genitourinary system; N99.114 Postprocedural urethral stricture, male, unspecified; N28.1 Cyst of kidney, acquired; N52.9 Male erectile dysfunction, unspecified; Z87.448 Personal history of other diseases of urinary system
CPT/HCPCS: 80048; 81001; 85027; 85610; 85730; 87086; 87635; U0003

== ENCOUNTER 2023-03-26 16:00 | Outpatient (CLI) | payer OTHER, SELFPAY | END 2023-03-26 16:01 | disposition home or self-care (01) | LOC: SLEEPLAB 16:00 | PROVIDERS: ATTEND Family Medicine | DX: G47.33 Obstructive sleep apnea (adult) (pediatric) (principal); R53.83 Other fatigue; R06.83 Snoring; E66.9 Obesity, unspecified; Z68.29 Body mass index [BMI] 29.0-29.9, adult | CPT/HCPCS: 95800 ==